=== PATIENT | male | born 1995 | race Two or more races ===

== ENCOUNTER 2020-04-09 10:46 | Emergency (ER) | payer SELFPAY ==
[2020-04-09] MEDS ORDERED: Ketorolac 30 MG/ML SDV IVPUSH ONE (11:09)
[2020-04-09] MEDS ORDERED: diphenhydrAMINE 50 MG/ML SDV IVPUSH ONE (11:09)
[2020-04-09] MEDS ORDERED: Ondansetron 4 MG/2 ML SDV IVPUSH ONE (11:09)
[2020-04-09] MEDS ORDERED: Sodium Chloride 0.9% 10 ML Syringe FLUSH PRN (11:09)
--- NOTE | 2020-04-09 11:14 | EDM.PDOC ---
ED HPI GENERAL MEDICAL PROBLEM - General Chief Complaint: Headache Stated Complaint: DIZZINESS/NUMBNESS IN FACE AND HANDS Time Seen by Provider: 04/09/20 11:02 Source of Information: Reports: Patient History Limitations: Reports: No Limitations - History of Present Illness INITIAL COMMENTS - FREE TEXT/NARRATIVE: Patient is a 25-year-old male who presents to the emergency department with complaints of headache, light sensitivity, numbness and tingling in his hands and face, nausea, and vomiting. Symptoms started around 7 AM this morning. Patient does verbalize a history of migraines which presents similar to this. States he gets them about every year, however he did have something similar to this last week as well. He denies any respiratory symptoms, fever, chills. He states he tried to take [id number] pain medications, however he vomited them up. He did request that we complete blood work today as he states he has not done it had a done for a while. head Pain Score (Numeric/FACES): 8 - Related Data Allergies Allergy/AdvReac Type Severity Reaction Status Date / Time No Known Allergies Allergy Verified 04/09/20 11:15 Home Meds: Home Meds . [No Known Home Meds] 04/09/20 [History] Past Medical History - Past Health History Medical/Surgical History: Denies Medical/Surgical History Social & Family History - Tobacco Use Smoking Status *Q: Never Smoker - Caffeine Use Caffeine Use: Reports: None - Recreational Drug Use Recreational Drug Use: No ED ROS GENERAL - Review of Systems Review Of Systems: See Below Constitutional: Reports: No Symptoms. Denies: Fever, Chills, Weakness HEENT: Reports: Other (Photophobia) Respiratory: Reports: No Symptoms Cardiovascular: Reports: No Symptoms Endocrine: Reports: No Symptoms GI/Abdominal: Reports: Nausea, Vomiting. Denies: Abdominal Pain : Reports: No Symptoms Musculoskeletal: Reports: No Symptoms Skin: Reports: No Symptoms Neurological: Reports: Dizziness, Headache, Numbness, Paresthesia. Denies: Confusion Psychiatric: Reports: No Symptoms Hematologic/Lymphatic: Reports: No Symptoms Immunologic: Reports: No Symptoms - Physical Exam Exam: See Below Exam Limited By: No Limitations General Appearance: Alert, WD/WN, No Apparent Distress Eye Exam: Bilateral Eye: PERRL Respiratory/Chest: No Respiratory Distress, Lungs Clear, Normal Breath Sounds, N o Accessory Muscle Use, Chest Non-Tender Cardiovascular: Normal Peripheral Pulses, Regular Rate, Rhythm, No Edema, No Gallop, No JVD, No Murmur, No Rub GI/Abdominal: Normal Bowel Sounds, Soft, Non-Tender, No Organomegaly, No Distention, No Abnormal Bruit, No Mass Neuro Exam (Abbreviated): Alert, Oriented, CN II-XII Intact, Normal Cognition, Normal Gait, Normal Reflexes, No Motor/Sensory Deficits Psychiatric: Normal Affect, Normal Mood Skin Exam: Warm, Dry, Intact, Normal Color, No Rash Course - Vital Signs Last Recorded V/S: Last Vital Signs Temp 96.7 F L 04/09/20 10:52 Pulse 72 04/09/20 10:52 Resp 18 04/09/20 10:52 BP 142/77 H 04/09/20 10:52 Pulse Ox 98 04/09/20 10:52 - Orders/Labs/Meds Orders: Active Orders 24 hr Category Date Time Status Peripheral IV Insertion Adult [OM.PC] Stat Oth 04/09/20 11:09 Ordered Labs: Laboratory Tests 04/09/20 04/09/20 Range/Units 11:21 11:21 WBC 8.04 (4.23-9.07) K/mm3 RBC 5.89 (4.63-6.08) M/mm3 Hgb 15.5 (13.7-17.5) gm/dl Hct 45.5 (40.1-51.0) % MCV 77.2 L (79.0-92.2) fl MCH 26.3 (25.7-32.2) pg MCHC 34.1 (32.2-35.5) g/dl RDW Std Deviation 36.1 (35.1-43.9) fL Plt Count 241 (163-337) K/mm3 MPV 8.5 L (9.4-12.3) fl Neut % (Auto) 79.4 H (34.0-67.9) % Lymph % (Auto) 15.0 L (21.8-53.1) % [place] % (Auto) 5.0 L (5.3-12.2) % Eos % (Auto) 0.2 L (0.8-7.0) Baso % (Auto) 0.2 (0.1-1.2) % Neut # (Auto) 6.37 H (1.78-5.38) K/mm3 Lymph # (Auto) 1.21 L (1.32-3.57) K/mm3 [place] # (Auto) 0.40 (0.30-0.82) K/mm3 Eos # (Auto) 0.02 L (0.04-0.54) K/mm3 Baso # (Auto) 0.02 (0.01-0.08) K/mm3 Sodium 138 (136-145) mEq/L Potassium 3.6 (3.5-5.1) mEq/L Chloride 102 (98-107) mEq/L Carbon Dioxide 26 (21-32) mEq/L Anion Gap 13.6 (5-15) BUN 12 (7-18) mg/dL Creatinine 0.9 (0.7-1.3) mg/dL Est Cr Clr Drug Dosing 121.80 mL/min Estimated GFR (MDRD) > 60 (>60) mL/min BUN/Creatinine Ratio 13.3 L (14-18) Glucose 103 (74-106) mg/dL Calcium 8.8 (8.5-10.1) mg/dL Total Bilirubin 0.8 (0.2-1.0) mg/dL AST 24 (15-37) U/L ALT 34 (16-63) U/L Alkaline Phosphatase 85 (46-116) U/L C-Reactive Protein 0.4 (<1.0) mg/dL Total Protein 7.3 (6.4-8.2) g/dl Albumin 4.0 (3.4-5.0) g/dl Globulin 3.3 gm/dL Albumin/Globulin Ratio 1.2 (1-2) Meds: Medications Discontinued Medications Generic Name Dose Route Start Last Admin Trade Name Freq PRN Reason Stop Dose Admin Acetaminophen 975 mg 04/09/20 12:48 04/09/20 12:56 Tylenol PO 04/09/20 12:49 975 mg NOW ONE Administration Diphenhydramine HCl 50 mg 04/09/20 11:09 04/09/20 11:15 Benadryl IVPUSH 04/09/20 11:10 50 mg ONETIME ONE Administration Hydromorphone HCl 0.5 mg 04/09/20 12:04 04/09/20 12:17 Dilaudid IVPUSH 04/09/20 12:05 0.5 mg ONETIME ONE Administration Sodium Chloride 1,000 mls @ 999 mls/hr 04/09/20 11:15 04/09/20 11:15 Normal Saline IV 999 mls/hr ASDIRECTED ELIA Administration Ketorolac Tromethamine 30 mg 04/09/20 11:04/09/20 11:15 Toradol IVPUSH 04/09/20 11:10 30 mg ONETIME ONE Administration Ondansetron HCl 4 mg 04/09/20 11:04/09/20 11:15 Zofran IVPUSH 04/09/20 11:10 4 mg ONETIME ONE Administration Sodium Chloride 10 ml 04/09/20 11:04/09/20 11:16 Saline Flush FLUSH 10 ml ASDIRECTED PRN Administration Keep Vein Open - Re-Assessments/Exams Free Text/Narrative Re-Assessment/Exam: 04/09/20 12:04 Patient verbalized some relief from the medications given, however he does still have a headache. Hematology was grossly unremarkable. I ordered Dilaudid 0.5 mg IV. 04/09/20 1255 Patient's headache is feeling better. His nausea has improved. I am going to give him Tylenol 975 mg p.o. If he is able to keep this down, we will discharge him home to rest. 04/09/20 13:54 Patient has had no return of vomiting and headache is better. We will discharge him home to rest. Discharge instructions as documented. Departure - Departure Time of Disposition: 13:54 Disposition: Home, Self-Care 01 Condition: Good Clinical Impression: Migraine - Discharge Information *PRESCRIPTION DRUG MONITORING PROGRAM REVIEWED*: No *COPY OF PRESCRIPTION DRUG MONITORING REPORT IN PATIENT KAYLA: No Instructions: Migraine Headache, [id number] Referrals: PCP,None [Primary Care Provider] - Forms: ED Department Discharge Additional Instructions: You were seen in the emergency department today for headache, nausea and vomiting, and numbness and tingling in your upper extremities. While in the ER he received IV fluids, pain medications, and nausea medications which did improve your symptoms. Recommend that you go home and rest in a quiet dark room. You can use [id number] Tylenol or ibuprofen as needed for headache. Return to ER for worsening symptoms. Sepsis Event Note (ED) - Evaluation Sepsis Screening Result: No Definite Risk - Focused Exam Vital Signs: Vital Signs Temp Pulse Resp BP Pulse Ox 04/09/20 10:52 96.7 F L 72 18 142/77 H 98 - My Orders Last 24 Hours: My Active Orders 04/09/20 11:09 Peripheral IV Insertion Adult [OM.PC] Stat - Assessment/Plan Last 24 Hours: My Active Orders 04/09/20 11:09 Peripheral IV Insertion Adult [OM.PC] Stat
[2020-04-09] MEDS ORDERED: Sodium Chloride 0.9% 1,000 ML IV SCH (11:15)
[2020-04-09] MEDS ORDERED: HYDROmorphone 0.5 MG/0.5 ML Syringe IVPUSH ONE (12:04)
[2020-04-09] MEDS ORDERED: Acetaminophen 325 MG Tab PO ONE (12:48)
== END 2020-04-09 14:12 | disposition home or self-care (01) ==
LOC: JD.ED 10:46
DX: G43.909 Migraine, unspecified, not intractable, without status migrainosus (principal)
CPT/HCPCS: 36415; 80053; 85025; 86140; 96361; 96374; 96375; 99284; A9270; J1170; J1200; J1885; J2405; J7030; 99283

== ENCOUNTER 2020-11-27 17:04 | Emergency (ER) | payer BC ==
[2020-11-27] MEDS ORDERED: Ketorolac 30 MG/ML SDV IVPUSH ONE (17:30)
[2020-11-27] MEDS ORDERED: Metoclopramide 10 MG/2 ML SDV IVPUSH ONE (17:30)
[2020-11-27] MEDS ORDERED: Sodium Chloride 0.9% 1,000 ML IV ONE (17:30)
[2020-11-27] MEDS ORDERED: Sodium Chloride 0.9% 10 ML Syringe FLUSH PRN (17:30)
[2020-11-27] MEDS ORDERED: diphenhydrAMINE 50 MG/ML SDV IVPUSH ONE (17:30)
--- NOTE | 2020-11-27 17:43 | EDM.PDOC ---
ED HPI GENERAL MEDICAL PROBLEM - General Chief Complaint: Headache Stated Complaint: DIZZY AND ARM NUMBNESS AND HEADACHE Time Seen by Provider: 11/27/20 17:16 Source of Information: Reports: Patient, RN Notes Reviewed History Limitations: Reports: No Limitations - History of Present Illness INITIAL COMMENTS - FREE TEXT/NARRATIVE: Patient is a 25-year-old male who presents to the ER for his migraine headache. Patient notes that he gets these headaches typically once a year, his last one was in April 2020. He notes that he had some pain in his right arm, that radiates up his shoulder, and then ends up developing into a migraine headache. He took 600 mg of ibuprofen at around 2:30 PM today, with little relief. He is having nausea but no vomiting, he had some slight blurred vision when the headache started, but this has subsided. He notes he is light sensitive, but not sound sensitive. Feels like there is someone squeezing the front portion of his head. Notes that this has been happening for the roughly 10 years. He is not seen any sort of providers for ongoing management of his headaches. He has had no fevers or chills, cough or shortness of breath, or any other sick-like symptoms. Headache Pain Score (Numeric/FACES): 6 - Related Data Allergies Allergy/AdvReac Type Severity Reaction Status Date / Time No Known Allergies Allergy Verified 11/27/20 17:18 Home Meds: Home Meds . [No Known Home Meds] 04/09/20 [History] Past Medical History - Past Health History Medical/Surgical History: Denies Medical/Surgical History - Past Surgical History Neurological Surgical History: Reports: Scoliosis Social & Family History - Tobacco Use Tobacco Use Status *Q: Never Tobacco User - Caffeine Use Caffeine Use: Reports: Energy Drinks - Recreational Drug Use Recreational Drug Use: No ED ROS GENERAL - Review of Systems Review Of Systems: Comprehensive ROS is negative, except as noted in HPI. - Physical Exam Exam: See Below Exam Limited By: No Limitations General Appearance: Alert, WD/WN, No Apparent Distress Eye Exam: Bilateral Eye: EOMI, Normal Inspection, PERRL Throat/Mouth: Normal Inspection, Normal Lips, Normal Teeth, Normal Gums, Normal Oropharynx, Normal Voice, No Airway Compromise Head Exam: Atraumatic, Normocephalic Respiratory/Chest: No Respiratory Distress, Lungs Clear, Normal Breath Sounds, No Accessory Muscle Use, Chest Non-Tender Cardiovascular: Normal Peripheral Pulses, Regular Rate, Rhythm, No Edema GI/Abdominal: Normal Bowel Sounds, Soft, Non-Tender, No Distention, No Mass Neuro Exam (Abbreviated): Alert, Oriented, Normal Cognition, No Motor/Sensory Deficits Extremities: Normal Inspection, Normal Capillary Refill Psychiatric: Normal Affect, Normal Mood Skin Exam: Warm, Dry, Intact, Normal Color, No Rash Course - Vital Signs Last Recorded V/S: Last Vital Signs Temp 97.1 F 11/27/20 17:15 Pulse 60 11/27/20 17:15 Resp 16 11/27/20 17:15 BP 131/74 11/27/20 17:15 Pulse Ox 97 11/27/20 17:15 - Orders/Labs/Meds Orders: Active Orders 24 hr Category Date Time Status Peripheral IV Care [RC] . DIRECTED Care 11/27/20 17:30 Active Sodium Chloride 0.9% [Saline Flush] Med 11/27/20 17:30 Active 10 ml FLUSH ASDIRECTED PRN Peripheral IV Insertion Adult [OM.PC] Routine Oth 11/27/20 17:30 Ordered Medication Orders Sodium Chloride (Sodium Chloride 0.9% 10 Ml Syringe) 10 ml FLUSH ASDIRECTED PRN PRN Reason: Keep Vein Open Labs: Laboratory Tests 11/27/20 11/27/20 Range/Units 18:07 18:07 WBC 7.85 (4.23-9.07) K/mm3 RBC 5.74 (4.63-6.08) M/mm3 Hgb 15.2 (13.7-17.5) gm/dl Hct 44.6 (40.1-51.0) % MCV 77.7 L (79.0-92.2) fl MCH 26.5 (25.7-32.2) pg MCHC 34.1 (32.2-35.5) g/dl RDW Std Deviation 34.6 L (35.1-43.9) fL Plt Count 247 (163-337) K/mm3 MPV 9.1 L (9.4-12.3) fl Neut % (Auto) 72.9 H (34.0-67.9) % Lymph % (Auto) 18.9 L (21.8-53.1) % [place] % (Auto) 7.1 (5.3-12.2) % Eos % (Auto) 0.5 L (0.8-7.0) Baso % (Auto) 0.3 (0.1-1.2) % Neut # (Auto) 5.73 H (1.78-5.38) K/mm3 Lymph # (Auto) 1.48 (1.32-3.57) K/mm3 [place] # (Auto) 0.56 (0.30-0.82) K/mm3 Eos # (Auto) 0.04 (0.04-0.54) K/mm3 Baso # (Auto) 0.02 (0.01-0.08) K/mm3 Sodium 139 (136-145) mEq/L Potassium 3.4 L (3.5-5.1) mEq/L Chloride 101 (98-107) mEq/L Carbon Dioxide 27 (21-32) mEq/L Anion Gap 14.4 (5-15) BUN 12 (7-18) mg/dL Creatinine 1.0 (0.7-1.3) mg/dL Est Cr Clr Drug Dosing 128.73 mL/min Estimated GFR (MDRD) > 60 (>60) mL/min BUN/Creatinine Ratio 12.0 L (14-18) Glucose 96 (74-106) mg/dL Calcium 8.4 L (8.5-10.1) mg/dL Total Bilirubin 0.9 (0.2-1.0) mg/dL AST 20 (15-37) U/L ALT 33 (16-63) U/L Alkaline Phosphatase 93 (46-116) U/L Total Protein 7.4 (6.4-8.2) g/dl Albumin 4.2 (3.4-5.0) g/dl Globulin 3.2 gm/dL Albumin/Globulin Ratio 1.3 (1-2) Meds: Medications Generic Name Dose Route Start Last Admin Trade Name Freq PRN Reason Stop Dose Admin Sodium Chloride 10 ml 11/27/20 17:30 Sodium Chloride 0.9% 10 Ml Syringe FLUSH ASDIRECTED PRN Keep Vein Open Discontinued Medications Generic Name Dose Route Start Last Admin Trade Name Freq PRN Reason Stop Dose Admin Diphenhydramine HCl 25 mg 11/27/20 17:30 11/27/20 18:03 Diphenhydramine 50 Mg/Ml Sdv IVPUSH 11/27/20 17:31 25 mg ONETIME ONE Administration Sodium Chloride 1,000 mls @ 999 mls/hr 11/27/20 17:30 11/27/20 18:02 Normal Saline IV 11/27/20 18:30 999 mls/hr ASDIRECTED ONE Administration Ketorolac Tromethamine 30 mg 11/27/20 17:30 11/27/20 18:03 Ketorolac 30 Mg/Ml Sdv IVPUSH 11/27/20 17:31 30 mg ONETIME ONE Administration Metoclopramide HCl 10 mg 11/27/20 17:30 11/27/20 18:03 Metoclopramide 10 Mg/2 Ml Sdv IVPUSH 11/27/20 17:31 10 mg ONETIME ONE Administration - Re-Assessments/Exams Free Text/Narrative Re-Assessment/Exam: 11/27/20 17:42 Patient presents to the ER for the evaluation of his headache. We will go ahead and get IV started, get some IV fluids, medications and also basic labs for evaluation. 11/27/20 19:00 Laboratory evaluation is unremarkable, patient was reassessed at bedside and states that his headache is better. We will go ahead and discharge him home at this time. Departure - Departure Time of Disposition: 19:01 Disposition: Home, Self-Care 01 Condition: Good Clinical Impression: Migraine Qualifiers: Migraine type: with aura Status migrainosus presence: without status migrainosus Intractability: not intractable Qualified Code(s): G43.109 - Migraine with aura, not intractable, without status migrainosus - Discharge Information *PRESCRIPTION DRUG MONITORING PROGRAM REVIEWED*: No *COPY OF PRESCRIPTION DRUG MONITORING REPORT IN PATIENT KAYLA: No Instructions: Recurrent Migraine Headache, [id number] Referrals: PCP,None [Primary Care Provider] - Forms: ED Department Discharge, ED Return to Work/School Form Additional Instructions: You were evaluated in the ED for your headache. You were given a combination of medications and IV fluid for management. This did seem to provide you pretty good relief of your symptoms. Recommend that you go home and rest in a quiet, darkened room. Try also to keep well hydrated. Highly recommend you follow-up with a regular care provider for your ongoing migraine headaches, you may call our clinic at [phone], any family practice provider would be able to help you with the services. Please return to the ED if your symptoms should change or worsen. Sepsis Event Note (ED) - Evaluation Sepsis Screening Result: No Definite Risk - Focused Exam Vital Signs: Vital Signs Temp Pulse Resp BP Pulse Ox 11/27/20 17:15 97.1 F 60 16 131/74 97 - My Orders Last 24 Hours: My Active Orders 11/27/20 17:30 Peripheral IV Care [RC] . DIRECTED Sodium Chloride 0.9% [Saline Flush] 10 ml FLUSH ASDIRECTED PRN Peripheral IV Insertion Adult [OM.PC] Routine - Assessment/Plan Last 24 Hours: My Active Orders 11/27/20 17:30 Peripheral IV Care [RC] . DIRECTED Sodium Chloride 0.9% [Saline Flush] 10 ml FLUSH ASDIRECTED PRN Peripheral IV Insertion Adult [OM.PC] Routine
== END 2020-11-27 19:13 | disposition home or self-care (01) ==
LOC: JD.ED 17:04
DX: G43.109 Migraine with aura, not intractable, without status migrainosus (principal)
CPT/HCPCS: 36415; 80053; 85025; 96374; 96375; 99283; J1200; J1885; J2765; J7030